=== PATIENT | male | born 1980 | race American Indian/Alaskan Native ===

== ENCOUNTER 2017-08-18 09:04 | Emergency (ER) | payer SELFPAY ==
[2017-08-18 10:03] VITALS: BP 149/90
== END 2017-08-18 11:44 | disposition left against medical advice (07) ==
LOC: ED 09:04
DX: H92.09 Otalgia, unspecified ear (principal); Z53.21 Procedure and treatment not carried out due to patient leaving prior to being seen by health care provider

== ENCOUNTER 2017-08-21 15:07 | Emergency (ER) | payer OTHER ==
[2017-08-21 15:13] VITALS: BP 130/78
[2017-08-21] MEDS ORDERED: NORCO 5/325 PO ONE (16:50)
--- NOTE | 2017-08-21 16:51 | Emergency Department Report ---
ED ENT HPI - General Chief complaint: Earache Stated complaint: EAR PAIN/HEARING LOSS Time Seen by Provider: 08/21/17 16:51 Source: patient Mode of arrival: Ambulatory Limitations: No Limitations - History of Present Illness MD complaint: ear pain -: Gradual Location: R ear Severity: moderate Quality: aching Consistency: constant Improves with: none Worsens with: none Associated Symptoms: hearing loss. denies: fever, cough, gum swelling, toothache, pain with swallowing, sore throat, tinnitus, discharge from ear, rhinorrhea - Related Data Previous Rx's Medication Instructions Recorded Last Taken Type Amoxicillin 500 mg PO BID #20 capsule 08/21/17 Unknown Rx methylPREDNISolone [Medrol] 4 mg PO DAILY #1 tab.ds.pk 08/21/17 Unknown Rx traMADol [Ultram] 50 mg PO Q6HR PRN #12 tablet 08/21/17 Unknown Rx Allergies Allergy/AdvReac Type Severity Reaction Status Date / Time No Known Allergies Allergy Verified 08/21/17 15:12 ED Dental HPI - General Chief complaint: Earache Stated complaint: EAR PAIN/HEARING LOSS Time Seen by Provider: 08/21/17 16:51 Source: patient Mode of arrival: Ambulatory Limitations: No Limitations - Related Data Previous Rx's Medication Instructions Recorded Last Taken Type Amoxicillin 500 mg PO BID #20 capsule 08/21/17 Unknown Rx methylPREDNISolone [Medrol] 4 mg PO DAILY #1 tab.ds.pk 08/21/17 Unknown Rx traMADol [Ultram] 50 mg PO Q6HR PRN #12 tablet 08/21/17 Unknown Rx Allergies Allergy/AdvReac Type Severity Reaction Status Date / Time No Known Allergies Allergy Verified 08/21/17 15:12 ED Review of Systems ROS: Stated complaint: EAR PAIN/HEARING LOSS Other details as noted in HPI Comment: All other systems reviewed and negative ENT: ear pain ED Past Medical Hx - Past Medical History Previous Medical History?: No - Social History Smoking Status: Current Every Day Smoker Substance Use Type: None - Medications Home Medications: Home Medications Medication Instructions Recorded Confirmed Last Taken Type Amoxicillin 500 mg PO BID #20 capsule 08/21/17 Unknown Rx methylPREDNISolone [Medrol] 4 mg PO DAILY #1 tab.ds.pk 08/21/17 Unknown Rx traMADol [Ultram] 50 mg PO Q6HR PRN #12 tablet 08/21/17 Unknown Rx ED Physical Exam - General Limitations: No Limitations General appearance: alert - Head Head exam: Present: atraumatic - Eye Eye exam: Present: EOMI - ENT ENT exam: Present: mucous membranes moist - Expanded ENT Exam Expanded TM/Canal exam: Erythema: Right TM, Cerumen Impaction: Right TM, Canal Tenderness : Right TM Mouth exam: Present: normal external inspection Teeth exam: Present: normal inspection Throat exam: Positive: normal inspection - Neck Neck exam: Present: normal inspection - Respiratory Respiratory exam: Present: normal lung sounds bilaterally - Cardiovascular Cardiovascular Exam: Present: regular rate - GI/Abdominal GI/Abdominal exam: Present: soft - Extremities Exam Extremities exam: Present: normal inspection - Back Exam Back exam: Present: normal inspection, full ROM - Neurological Exam Neurological exam: Present: alert, oriented X3, CN II-XII intact, normal gait - Psychiatric Psychiatric exam: Present: normal affect, normal mood - Skin Skin exam: Present: warm, dry, intact, normal color ED Course Vital Signs 08/21/17 15:12 Temperature 98.6 F Pulse Rate 76 Respiratory 16 Rate Blood Pressure 130/78 O2 Sat by Pulse 98 Oximetry - Reevaluation(s) Reevaluation #1: 08/21/17 17:57 R EAR PAIN CERUMEN OR FB (COTTON APPEARING) DEC HEARING IMPROVED P FLUSHING MEDICATED WILL RETURN IN AM FOR A RECHECK DC HOME W AND DC POC ED Medical Decision Making - Medical Decision Making SEE NOTE - Differential Diagnosis OM V FB Critical care attestation.: If time is entered above; I have spent that time in minutes in the direct care of this critically ill patient, excluding procedure time. ED Disposition Clinical Impression: Otitis media Disposition: DC-01 TO HOME OR SELFCARE Is pt being admited?: No Does the pt Need Aspirin: No Condition: Stable Instructions: Otitis Media (ED) Additional Instructions: NOTHING IN EAR RETURN TOMORROW FOR MEL TO REEXAMINE MED ORDERED Prescriptions: Amoxicillin 500 mg PO BID #20 capsule methylPREDNISolone [Medrol] 4 mg PO DAILY #1 tab.ds.pk traMADol [Ultram] 50 mg PO Q6HR PRN #12 tablet PRN Reason: Pain Referrals: PRIMARY CARE, [Primary Care Provider] - 3-5 Days MICHELLE VAZQUEZ MD [Staff Physician] - 3-5 Days Time of Disposition: 17:53
[2017-08-21] MEDS ORDERED: DECADRON IM ONE (17:52)
[2017-08-21] MEDS ORDERED: TRIMOX PO ONE (17:52)
== END 2017-08-21 18:18 | disposition home or self-care (01) ==
LOC: ED 15:07
DX: H66.91 Otitis media, unspecified, right ear (principal); F17.200 Nicotine dependence, unspecified, uncomplicated
CPT/HCPCS: 96372; 99283; J1100

== ENCOUNTER 2017-08-22 07:29 | Emergency (ER) | payer OTHER ==
[2017-08-22 07:49] VITALS: BP 141/91
[2017-08-22] MEDS ORDERED: CIPRODEX AD ONE (08:04)
[2017-08-22] MEDS ORDERED: NORCO 5/325 PO ONE (08:04)
[2017-08-22] MEDS ORDERED: LEVAQUIN PO ONE (08:05)
--- NOTE | 2017-08-22 08:10 | Emergency Department Report ---
Minor Respiratory - HPI Chief Complaint: Earache Stated Complaint: REEXAMINE EAR INFECTION Time Seen by Provider: 08/22/17 07:49 ED Review of Systems ROS: Stated complaint: REEXAMINE EAR INFECTION Other details as noted in HPI ED Past Medical Hx - Past Medical History Previous Medical History?: No - Surgical History Past Surgical History?: No - Social History Smoking Status: Current Every Day Smoker Substance Use Type: None - Medications Home Medications: Home Medications Medication Instructions Recorded Confirmed Last Taken Type Amoxicillin 500 mg PO BID #20 capsule 08/22/17 Unknown Rx Ciprofloxacin/Hydrocortisone 2 drop OD Q4H #1 each 08/22/17 Unknown Rx [Ciprofloxacin HC OTIC] Minor Respiratory Exam - Exam General: Vital signs noted. No distress. Alert and acting appropriately. Neurologic: Alert and oriented, no deficits. Musculoskeletal: Unremarkable. ED Course Vital Signs 08/22/17 07:46 Temperature 99 F Pulse Rate 79 Respiratory 79 H Rate Blood Pressure 141/91 O2 Sat by Pulse 100 Oximetry Critical care attestation.: If time is entered above; I have spent that time in minutes in the direct care of this critically ill patient, excluding procedure time. ED Disposition Clinical Impression: Otitis media, Otitis externa Disposition: DC-01 TO HOME OR SELFCARE Is pt being admited?: No Does the pt Need Aspirin: No Condition: Stable Instructions: Cerumen Impaction (ED), Otitis Externa (ED), Otitis Media (ED) Additional Instructions: MOTRIN OR TYLENOL FOR PAIN OR FEVER МАРИЯ GIVEN YOU PCP HERE- SEE BELOW SHE CAN REFER TO ENT IF PERSISTS CERUMENEX OVER THE COUNTER EACH NIGHT WITH COTTON Referrals: PRIMARY CARE, [Primary Care Provider] - 3-5 Days [facility] [Outside] - 3-5 Days Time of Disposition: 08:06
== END 2017-08-22 09:09 | disposition home or self-care (01) ==
LOC: ED 07:29
DX: H60.90 Unspecified otitis externa, unspecified ear (principal); H66.90 Otitis media, unspecified, unspecified ear; F17.200 Nicotine dependence, unspecified, uncomplicated
CPT/HCPCS: 99282

== ENCOUNTER 2017-09-11 11:29 | Emergency (ER) | payer SELFPAY ==
[2017-09-11 12:54] VITALS: BP 145/83
--- NOTE | 2017-09-11 15:54 | Emergency Department Report ---
Minor Respiratory - HPI Chief Complaint: Earache Stated Complaint: EAR PAIN Time Seen by Provider: 09/11/17 15:21 Pain Location: Ear (r) Severity: moderate Minor Respiratory: Yes Able to Tolerate Fluids, Yes Ear Pain, No Rhinorrhea, No Sore Throat, No Cough, No Sick Contacts, No Hemoptysis, No Chest Pain, No Shortness of Breath, No Fever ED Review of Systems ROS: Stated complaint: EAR PAIN Other details as noted in HPI Comment: All other systems reviewed and negative ENT: ear pain (r) ED Past Medical Hx - Past Medical History Previous Medical History?: Yes Additional medical history: Frequent ear aches - Surgical History Past Surgical History?: No - Social History Smoking Status: Current Every Day Smoker Substance Use Type: Marijuana, Non Opiate Pain - Medications Home Medications: Home Medications Medication Instructions Recorded Confirmed Last Taken Type Ciprofloxacin HCl [Cipro] 500 mg PO BID #20 tablet 09/11/17 Unknown Rx Minor Respiratory Exam - Exam General: Vital signs noted. No distress. Alert and acting appropriately. HEENT: Yes Moist Mucous Membranes, No Pharyngeal Erythema, No Pharyngeal Exudates, No Rhinorrhea, No Conjuctival Injection, No Frontal Tenderness, No Maxillary Tenderness Ear: Right TM Erythema, Right EAC Pain, Right EAC Discharge Neck: Yes Supple, No Adenopathy Lungs: Yes Good Air Exchange, No Wheezes, No Ronchi, No Stridor, No Cough, No Labored Respirations, No Retractions, No Use of Accessory Muscles, No Other Abnormal Lung Sounds Heart: Yes Regular, No Murmur Abdomen: Yes Normal Bowel Sounds, No Tenderness, No Peritoneal Signs Skin: No Rash, No Edema Neurologic: Alert and oriented, no deficits. Musculoskeletal: Unremarkable. ED Course Vital Signs 09/11/17 12:50 Temperature 98.1 F Pulse Rate 54 L Respiratory 16 Rate Blood Pressure 145/83 O2 Sat by Pulse 97 Oximetry - Reevaluation(s) Reevaluation #1: 09/11/17 16:26 She is known to provider. He presents to the emergency room with persistent right ear pain. Myself and Dr. Arevalo has seen the patient. He has been on a course of amoxicillin. That has persistent drainage from the right ear. He also reports is difficult to hear from the ear. Looks better today than on previous exam on the first of the month. Ear has been flushed. We'll change antibiotic to Cipro for Pseudomonas coverage. Discussed with patient and his that he will need to follow up with ENT at this point given the persistent and resistant otitis externa and otitis media that the patient next is experiencing There is no pain over the mastoid process. The patient is awake alert and oriented. He is nonfebrile. Nontoxic. Not ill appearing. Ambulatory. Requesting a work note. Patient is able to hear with 6 foot whisper test right left and bilateral. ED Medical Decision Making - Medical Decision Making see note - Differential Diagnosis a/c ear pain/ infection Critical care attestation.: If time is entered above; I have spent that time in minutes in the direct care of this critically ill patient, excluding procedure time. ED Disposition Clinical Impression: Otitis media, Otitis externa Disposition: TO HOME OR SELFCARE Is pt being admited?: No Does the pt Need Aspirin: No Condition: Stable Instructions: Otitis Externa (ED), Cerumen Impaction (ED), Ear Foreign Body (ED ) Additional Instructions: given persistent nature of this we need to refer you to ENT see below meds as ordered today Prescriptions: Ciprofloxacin HCl [Cipro] 500 mg PO BID #20 tablet Referrals: ROMAN MARTINEZ MD [Primary Care Provider] - 3-5 Days CRISTINA MCCULLOUGH MD [Staff Physician] - 3-5 Days Forms: Work/School Release Form(ED) Time of Disposition: 16:12
[2017-09-11] MEDS ORDERED: COLACE PO ONE (15:57)
== END 2017-09-11 16:44 | disposition home or self-care (01) ==
LOC: ED 11:29
DX: H66.91 Otitis media, unspecified, right ear (principal); H60.91 Unspecified otitis externa, right ear; F17.200 Nicotine dependence, unspecified, uncomplicated; F12.10 Cannabis abuse, uncomplicated
CPT/HCPCS: 99283

== ENCOUNTER 2018-05-10 22:23 | Emergency (ER) | payer SELFPAY | END 2018-05-10 22:25 | disposition left against medical advice (07) | LOC: ED 22:23 | DX: S61.459A Open bite of unspecified hand, initial encounter (principal); Z53.21 Procedure and treatment not carried out due to patient leaving prior to being seen by health care provider; X58.XXXA Exposure to other specified factors, initial encounter; Y93.89 Activity, other specified; Y92.89 Other specified places as the place of occurrence of the external cause; Y99.8 Other external cause status ==